=== PATIENT | male | born 1965 | race Caucasian/White ===

== ENCOUNTER 2017-12-08 17:30 | Emergency (ER) | payer BC ==
[~2017-12-08] VITALS: Ht 182.9 cm; Wt 72.6 kg
[~2017-12-08 17:30] MED LIST: CEPHALEXIN500 MG PO; NORCO 5-325 TA1 EACH PO
== END 2017-12-08 20:48 | disposition short-term general hospital (02) ==
LOC: ED 17:30
PROC: 0RSJXZZ Reposition Right Shoulder Joint, External Approach (ICD-10-PCS; principal; 2017-12-08)
DX: M24.411 Recurrent dislocation, right shoulder (principal); X50.9XXA Other and unspecified overexertion or strenuous movements or postures, initial encounter
CPT/HCPCS: 23650; 73030; 96374; 96375; 96376; 99285; J1170; J2250; J2405; J2704; J3010

== ENCOUNTER 2017-12-18 12:19 | Day surgery (SDC) | payer OTHER, BC ==
[~2017-12-18] VITALS: Ht 182.9 cm; Wt 72.6 kg
--- OUTSIDE RECORDS SUMMARY | ~2017-12-18 | XMS | Encounter Summary ---
Demographics + + + | Address | [address] | | | [place] [address] | + + + | Home Phone | | + + + | Preferred Language | Unknown | + + + | Marital Status | Single | + + + | Cheondoism Affiliation | Unknown | + + + | Race | Unknown | + + + | Ethnic Group | Unknown | + + + Author + + + | Author | [facility] | | | and [place] | + + + | Organization | [facility] | | | and [place] | + + + | Address | Unknown | + + + | Phone | Unavailable | + + + Support + + + + + | Name | Relationship | Address | Phone | + + + + + | Yuliya Bynum | ECON | [address] | | | | | [place] | | | | | [address] | | + + + + + Care Team Providers + +------+ + | Care Group Home Paraprofessional Name | Role | Phone | + +------+ + | No, Physician | PCP | Unavailable | + +------+ + Reason for Visit + + + | Reason | Comments | + + + | Shoulder Pain | | + + + Auth/Cert +--------+--------+ + + + + | Status | Reason | Specialty | Diagnoses / | Referred By | Referred To | | | | | Procedures | Contact | Contact | +--------+--------+ + + + + | | | | | | | +--------+--------+ + + + + Encounter Details +--------+---------+ + + + | Date | Type | Department | Care Team | Description | +--------+---------+ + + + | 12/08/ | Surgery | [facility] | Vivek Deshpande | MANIPULATION | | 2018 | | MED CTR OR INTRA OP | MD Angeline [address] [facility] | SHOULDER ( Closed | | | | [address] | [place] | vs Open reduction of | | | | [place] | [address] | R shoulder | | | | [address] | | | | | | [phone] | | | +--------+---------+ + + + Social History + +-------+ +--------+------+ | Tobacco Use | Types | Packs/Day | Years | Date | | | | | Used | | + +-------+ +--------+------+ | Never Smoker | | | | | + +-------+ +--------+------+ + +---+---+ + | Smokeless Tobacco: | | | Quit: | | Former User | | | 12/08/18 | | | | | 94 | + +---+---+ + + + +---------+ + | Alcohol Use | Drinks/We | oz/Week | Comments | | | ek | | | + + +---------+ + | Yes | 3 Cans | 1.8 | | | | of beer | | | + + +---------+ + + + + | Sex Assigned at | Date Recorded | | | | + + + | Not on file | | + + + as of this encounter Last Filed Vital Signs + + + + | Vital Sign | Reading | Time Taken | + + + + | Blood Pressure | 183/86 | 12/08/20172314 PDT | + + + + | Pulse | 76 | 12/08/20172314 PDT | + + + + | Temperature | 35.7 C (96.3 F) | 12/08/20172244 PDT | + + + + | Respiratory Rate | 15 | 12/08/20172314 PDT | + + + + | Oxygen Saturation | 100% | 12/08/20172314 PDT | + + + + | Inhaled Oxygen | - | - | | Concentration | | | + + + + | Weight | 70.3 kg (155 lb) | 12/08/20172257 PDT | + + + + | Height | 182.9 cm (6') | 12/08/20172257 PDT | + + + + | Body Mass Index | 21.02 | 12/08/20172257 PDT | + + + + in this encounter Functional Status + + + + | Functional Status | Response | Date of Assessment | + + + + | Are you deaf or do you have serious | No | 12/08/2017 | | difficulty hearing? | | | + + + + | Are you blind or do you have serious | No | 12/08/2017 | | difficulty seeing, even when wearing | | | | glasses? | | | + + + + | Do you have serious difficulty walking or | No | 12/08/2017 | | climbing stairs? (5 years old or older) | | | + + + + | Do you have difficulty dressing or bathing? | No | 12/08/2017 | | (5 years old or older) | | | + + + + | Because of a physical, mental, or emotional | No | 12/08/2017 | | condition, do you have difficulty doing | | | | errands alone such as visiting a doctor's | | | | office or shopping? [15 years old or | | | | older)] | | | + + + + + + + + | Cognitive Status | Response | Date of Assessment | + + + + | Because of a physical, mental, or emotional | No | 12/08/2017 | | condition, do you have serious difficulty | | | | concentrating, remembering, or making | | | | decisions? (5 years old or older) | | | + + + + as of this encounter Discharge Instructions Monroe Rivera PA-C - 12/08/2017Call our office on Sunday to schedule your post opera tive appointment in two weeks Keep sling in place at right shoulder in place for one week. No range of motion during thi s time. You can remove sling to shower bug keep arm internally rotated to stomach. After one week you can start with gentle range of motion at shoulder. No weight bearing or lifting at shoulder. Take pain medications as prescribed if necessary If you have any questions, comments or concerns please contact our office. Do not exceed 4,000 mg of acetaminophen (Tylenol) per day. Hydrocodone-acetaminophen ([place] ) and Oxycodone-acetaminophen (Percocet) have 325 mg acetaminophen per tablet. Regular [facility] acetaminophen is 325 mg per tablet. Extra strength has 500 mg per tablet. Do not consume alcohol while taking opioid mediations. If constipation arises, try docusate-senna one tablet twice daily; milk of magnesia 30 mL o nce each night; or Miralax one capful (17 grams) dissolved in half a cup of water once daily for 3 days. If constipation does not resolve within 3 days after discharge, contact the doc tor's office. in this encounter Medications at Time of Discharge + + +--------+---------+ + + | Medication | Sig. | Disp. | Refills | Start | End Date | | | | | | Date | | + + +--------+---------+ + + | | Take 1 tablet by | 30 | 0 | 12/09/19 | | | HYDROcodone-acetamin | mouth EVERY 4 TO 6 | tablet | | 18 | | | ophen (NORCO) | HOURS NEEDED. | | | | | | 7.5-325 mg per | | | | | | | tablet | | | | | | + + +--------+---------+ + + as of this encounter Progress Notes J Luis Vickers RN - 12/09/2017 0101 PDTPatient arrived to the floor from OR at 2230 and was oriented to room and call light system. Admission assessment complete. Patient was able to eat without nausea/vomit. Patient voided twice. Patient's pain was controlled with 10mg po o xycodone. Patient was instructed to wait for pharmacy to open before discharge but patient d eclined and said that he would "tough it out" until his pharmacy opens up at 0800. Discharge instructions given to patient and AVS printout handed to him. Prescription for NORCO given. Peripheral IV access discontinue with catheter tip intact. Patient significant other arrive d to drive patient home. Valuables returned to patient. Discharge VS within normal limits. P atient denied any acute distress. Patient was wheeled to the car at 0020 accompanied by girl friend. in this encounter Plan of Treatment Not on fileas of this encounter Procedures + +--------+ + + + | Procedure Name | Priori | Date/Time | Associated Diagnosis | Comments | | | ty | | | | + +--------+ + + + | MANIPULATION | | 12/08/2017 | Dislocated R | | | SHOULDER ( Closed | | 2145 PDT | shoulder | | | vs Open reduction of | | | | | | R shoulder | | | | | + +--------+ + + + in this encounter Results XR Shoulder Right 1 Vw (12/08/20172227) + + | Narrative | + + | EXAM:XR SHOULDER RIGHT 1 VW CLINICAL HISTORY: Intra Op Closed Reduction Right | | Shoulder Dislocation COMPARISON: None. FINDINGS/IMPRESSION -Single fluoroscopic | | images show of the right shoulder. There are degenerative changes in the | | shoulder. The proximal humerus appears to reside within the glenohumeral joint. | | Dictated and Signed by: Hair Chan MD Electronically signed: 12/09/2017 8:42 | | AM | + + + + | Procedure Note | + + | Soren Urias Results In - 12/09/2017 0845 PDT EXAM:XR SHOULDER RIGHT 1 VW | | | | CLINICAL HISTORY: Intra Op Closed Reduction Right Shoulder Dislocation | | | | COMPARISON: None. | | | | FINDINGS/IMPRESSION -Single fluoroscopic images show of the right shoulder. | | There are degenerative changes in the shoulder. The proximal humerus appears to | | reside within the glenohumeral joint. | | | | | | Dictated and Signed by: Hair Chan MD | | Electronically signed: 12/09/2017 8:42 AM | + + FL C-Arm Stats No Charge (12/08/2017 2203) + + + | Specimen | Performing Laboratory | + + + | | [facility] | + + + + + | Narrative | + + | No Radiologist interpretation, please see Chart Review. | + + IMAGING REPORT - EXTERNAL SCAN (12/08/2017) + + | Narrative | + + | Ordered by an unspecified provider. | + + in this encounter Visit Diagnoses Not on filein this encounter Administered Medications + +--------+---------+------+------+------+ | Medication Order | MAR | Action | Dose | Rate | Site | | | Action | Date | | | | + +--------+---------+------+------+------+ + +---+ | diphenhydrAMINE (BENADRYL) 12.5 | | | mg/5 mL liquid 25 mg 25 mg, | | | Oral, EVERY 4 HOURS PRN, Itching, | | | Starting 12/08/17 at 2245, | | | Give nalbuphine 1st, if | | | ineffective or not ordered, | | | administer diphenhydrAMINE. | | | Oral route is preferred. | | + +---+ | | | + +---+ | diphenhydrAMINE (BENADRYL) | | | injection 12.5 mg 12.5 mg, | | | Intravenous, EVERY 4 HOURS PRN, | | | Itching, Starting 12/08/17 at | | | 2245, Give nalbuphine 1st, if | | | ineffective or not ordered, | | | administer diphenhydrAMINE. | | | Oral route is preferred. | | + +---+ | | | + +---+ | diphenhydrAMINE (BENADRYL) | | | tablet 25 mg 25 mg, Oral, EVERY | | | 4 HOURS PRN, Itching, Starting | | | 12/08/17 at 2245, Give | | | nalbuphine 1st, if ineffective or | | | not ordered, administer | | | diphenhydrAMINE. Oral route is | | | preferred. | | + +---+ | | | + +---+ | lactated ringers (LR) infusion | | | at 10-100 mL/hr, Intravenous, | | | CONTINUOUS, Starting 12/08/17 | | | at 2230, TKO. | | + +---+ | | | + +---+ | ondansetron (ZOFRAN ODT) | | | disintegrating tablet 4 mg 4 mg, | | | Oral, EVERY 6 HOURS PRN, Nausea, | | | Vomiting, Starting 12/08/17 | | | at 2245, First line agent | | + +---+ | | | + +---+ | ondansetron (ZOFRAN) injection | | | 4 mg 4 mg, Intravenous, EVERY 6 | | | HOURS PRN, Nausea, Vomiting, | | | Starting 12/08/17 at 2245, | | | First line agent. Use PO option | | | unless NPO status or unable to | | | tolerate. | | + +---+ | | | + +---+ + +-------+ +-------+---+---+ | oxyCODONE (ROXICODONE) tablet | Given | | 10 mg | | | | 5-20 mg 5-20 mg, Oral, EVERY 3 | | 8 23:25 | | | | | HOURS PRN, Pain, Starting Sat | | PDT | | | | | 12/08/17 at 2245, First dose must | | | | | | | be the lowest dose, can titrate | | | | | | | to effective dose by repeat of | | | | | | | lowest dose every 60 minutes prn | | | | | | | pain, may not exceed maximum dose | | | | | | | ordered per interval. Use Pasero | | | | | | | Sedation Scale. | | | | | | + +-------+ +-------+---+---+ +---+---+ | | | +---+---+ in this encounter
--- OUTSIDE RECORDS SUMMARY | ~2017-12-18 | XMS | Encounter Summary ---
Demographics + + + | Address | [address] | | | [place] [address] | + + + | Home Phone | | + + + | Preferred Language | Unknown | + + + | Marital Status | Single | + + + | Hoahaoism Affiliation | Unknown | + + + | Race | Unknown | + + + | Ethnic Group | Unknown | + + + Author + + + | Author | [facility] | | | and [place] | + + + | Organization | [facility] | | | and [place] | + + + | Address | Unknown | + + + | Phone | Unavailable | + + + Support + + + + + | Name | Relationship | Address | Phone | + + + + + | Yuliya Bynum | ECON | [address] | | | | | [place] | | | | | [address] | | + + + + + Care Team Providers + +------+ + | Care Dry Pan Feeder Name | Role | Phone | + +------+ + | No, Physician | PCP | Unavailable | + +------+ + Encounter Details +--------+ + + + + | Date | Type | Department | Care Team | Description | +--------+ + + + + | 12/08/ | Procedure | [facility] | | | | 2017 | Pass | MED CTR OR INTRA OP | | | | | | [address] | | | | | | [place] | | | | | | [address] | | | | | | [phone] | | | +--------+ + + + + Social History + +-------+ [...] + + + as of this encounter Plan of Treatment Not on fileas of this encounter Visit Diagnoses Not on filein this encounter"
--- OUTSIDE RECORDS SUMMARY | ~2017-12-18 | XMS | Encounter Summary ---
Demographics + + + | Address | [address] | | | [place] [address] | + + + | Home Phone | | + + + | Preferred Language | Unknown | + + + | Marital Status | Single | + + + | Mu-Ism Affiliation | Unknown | + + + | Race | Unknown | + + + | Ethnic Group | Unknown | + + + Author + + + | Author | [facility] | | | and [place] | + + + | Organization | [facility] | | | and [place] | + + + | Address | Unknown | + + + | Phone | Unavailable | + + + Support + + + + + | Name | Relationship | Address | Phone | + + + + + | Yuliya Bynum | ECON | [address] | | | | | [place] | | | | | [address] | | + + + + + Care Team Providers + +------+ + | Care Boil Off Machine Operator Cloth Name | Role | Phone | + [...] | 12/08/ | Surgery | [facility] | Vivek Deshpande | MANIPULATION | | 2018 | | MED CTR OR INTRA OP | MD Angeline [address] [facility] | SHOULDER ( Closed | | | | [address] | [place] | vs Open reduction of | | | | [place] | [address] | R shoulder | | | | [address] | | | | | | [phone] | | | +--------+---------+ + + + [...] mg of acetaminophen (Tylenol) per day. Hydrocodone-acetaminophen ([place] ) and Oxycodone-acetaminophen (Percocet) have 325 mg acetaminophen per tablet. Regular [facility] acetaminophen is 325 mg per tablet. [...]
--- OUTSIDE RECORDS SUMMARY | ~2017-12-18 | XMS | Encounter Summary ---
Demographics + + + | Address | [address] | | | [place] [address] | + + + | Home Phone | | + + + | Preferred Language | Unknown | + + + | Marital Status | Single | + + + | Baptist Affiliation | Unknown | + + + | Race | Unknown | + + + | Ethnic Group | Unknown | + + + Author + + + | Author | [facility] | | | and [place] | + + + | Organization | [facility] | | | and [place] | + + + | Address | Unknown | + + + | Phone | Unavailable | + + + Support + + + + + | Name | Relationship | Address | Phone | + + + + + | Yuliya Bynum | ECON | [address] | | | | | [place] | | | | | [address] | | + + + + + Care Team Providers + +------+ + | Care Telesales Agent Name | Role | Phone | + [...] | | | | | [address] | | | | | | [place] | | | | | | [address] | | | | | | [phone] | | | +--------+ + + + [...]
--- OUTSIDE RECORDS SUMMARY | ~2017-12-18 | XMS | Encounter Summary ---
Demographics + + + | Address | [address] | | | [place] [address] | + + + | Home Phone | | + + + | Preferred Language | Unknown | + + + | Marital Status | Single | + + + | Mandaeism Affiliation | Unknown | + + + | Race | Unknown | + + + | Ethnic Group | Unknown | + + + Author + + + | Author | [facility] | | | and [place] | + + + | Organization | [facility] | | | and [place] | + + + | Address | Unknown | + + + | Phone | Unavailable | + + + Support + + + + + | Name | Relationship | Address | Phone | + + + + + | Yuliya Bynum | ECON | [address] | | | | | [place] | | | | | [address] | | + + + + + Care Team Providers + +------+ + | Care Rug Dyer Helper Name | Role | Phone | + +------+ + | No, Physician | PCP | Unavailable | + +------+ + Reason for Visit Auth/Cert +--------+--------+ + + + + | Status | Reason | Specialty | Diagnoses / | Referred By | Referred To | | | | | Procedures | Contact | Contact | +--------+--------+ + + + + | | | | | | | +--------+--------+ + + + + Encounter Details +--------+ + + + + | Date | Type | Department | Care Team | Description | +--------+ + + + + | 12/08/ | Anesthesia | [facility] | Zo Ramon | | | 2018 | Event | MED CTR OR INTRA OP | DO [address] | | | | | [address] | [address] [facility] | | | | | [place], [place] | [facility] [place] [address] | | | | | [address] | [phone] | | | | | [phone] | | | +--------+ + + + + Anesthesia Record + + + + + | Procedure Name | Responsible | Anesthesia Start | Anesthesia Stop Time | | | Anesthesiologist | Time | | + + + + + | MANIPULATION | Zo Deviriel | 12/08/172157 | 12/08/179 | | SHOULDER ( Closed | DO Tristen | | | | vs Open reduction of | | | | | R shoulder (Right | | | | | Shoulder) | | | | + + + + + +----+---+ + + | Da | T | Event | Comment | | te | i | | | | | m | | | | | e | | | +----+---+ + + | 03 | 2 | An Checkout | Pre-use anesthesia machine/equipment checkout. | | /3 | 1 | | | | 1/ | 5 | | | | 20 | 8 | | | | 18 | | | | +----+---+ + + | | 2 | An Start | Reassessment prior to anesthesia induction/procedure. | | | 1 | | | | | 5 | | | | | 8 | | | +----+---+ + + | | 2 | First | | | | 1 | Inc/Proc St | | | | 5 | | | | | 8 | | | +----+---+ + + | | 2 | Preoxygenat | | | | 1 | ed | | | | 5 | | | | | 9 | | | +----+---+ + + | | 2 | Pre-Procedu | | | | 1 | ral Timeout | | | | 5 | Completed | | | | 9 | | | +----+---+ + + | | 2 | An | | | | 2 | Induction | | | | 0 | | | | | 0 | | | +----+---+ + + | | 2 | Quick Note | Induced than mask ventilated until return of spontaneous | | | 2 | | ventilation at which time I woke him up. | | | 0 | | | | | 7 | | | +----+---+ + + | | 2 | Breathing | | | | 2 | Spontaneous | | | | 1 | ly | | | | 0 | | | +----+---+ + + | | 2 | an stop | | | | 2 | data | | | | 1 | | | | | 2 | | | +----+---+ + + | | 2 | An Stop | Patient handed off to recovery nurse. | | | 1 | | | | | 9 | | | +----+---+ + + +------+ | Meds | +------+ + +--------+ | Name | Total | + +--------+ | propofol (DIPRIVAN) injection | 200 mg | | (bolus) (20 mL) | | + +--------+ | lidocaine 2% | 100 mg | + +--------+ | succinylcholine | 100 mg | + +--------+ | ondansetron | 4 mg | + +--------+ | dexamethasone | 10 mg | + +--------+ | LR (Infusion) | 300 mL | + +--------+ + + | Name | + + | N2O Flow Rate (L/Min) | + + | O2 Flow Rate (L/Min) | + + | Insp O2 | + + | Exp SEV | + + | Air Flow Rate (L/Min) | + + + + | No blood administrations on file. | + + +--------+ + + + | Type | Details | Placement | Removal | +--------+ + + + | Periph | 12/08/17; 1899; yes; Left; | 12/08/171899 by | 12/09/178 by | | eral | Antecubital; 20 gauge; 12/09/17; | J Luis Vickers RN | J Luis Vickers RN | | IV | 0009 | | | +--------+ + + + in this encounter Social History + +-------+ +--------+------+ | Tobacco [...] on filein this encounter Administered Medications + +--------+ +-------+------+------+ | Medication Order | MAR | Action | Dose | Rate | Site | | | Action | Date | | | | + +--------+ +-------+------+------+ | dexamethasone (PF) 10 mg/mL | Given | | 10 mg | | | | injection Intravenous, PRN, | | 8 22:00 | | | | | Starting 12/08/17 at 2200, | | PDT | | | | | Anesthesia Intra-op | | | | | | + +--------+ +-------+------+------+ +---+---+ | | | +---+---+ + +---------+ +---+---+---+ | lactated ringers (LR) infusion | New Bag | | | | | | Intravenous, CONTINUOUS PRN, | | 8 21:56 | | | | | Starting 12/08/17 at 2156, | | PDT | | | | | Anesthesia Intra-op | | | | | | + +---------+ +---+---+---+ +---+---+ | | | +---+---+ + +-------+ +--------+---+---+ | lidocaine (PF) 2% injection | Given | | 100 mg | | | | Intravenous, PRN, Starting Sat | | 8 22:00 | | | | | 12/08/17 at 2200, Anesthesia | | PDT | | | | | Intra-op | | | | | | + +-------+ +--------+---+---+ +---+---+ | | | +---+---+ + +-------+ +------+---+---+ | ondansetron (ZOFRAN) injection | Given | | 4 mg | | | | Intravenous, PRN, Nausea, | | 8 22:00 | | | | | Vomiting, Starting 12/08/17 at | | PDT | | | | | 2200, Anesthesia Intra-op | | | | | | + +-------+ +------+---+---+ +---+---+ | | | +---+---+ + +-------+ +--------+---+---+ | propofol (DIPRIVAN) injection | Given | | 200 mg | | | | Intravenous, PRN, Starting Sat | | 8 22:00 | | | | | 12/08/17 at 2200, Anesthesia | | PDT | | | | | Intra-op | | | | | | + +-------+ +--------+---+---+ +---+---+ | | | +---+---+ + +-------+ +--------+---+---+ | succinylcholine (ANECTINE) | Given | | 100 mg | | | | injection Intravenous, PRN, | | 8 22:00 | | | | | Starting 12/08/17 at 2200, | | PDT | | | | | Anesthesia Intra-op | | | | | | + +-------+ +--------+---+---+ +---+---+ | | | +---+---+ in this encounter"
--- OUTSIDE RECORDS SUMMARY | ~2017-12-18 | XMS | Encounter Summary ---
Demographics + + + | Address | [address] | | | [place] [address] | + + + | Home Phone | | + + + | Preferred Language | Unknown | + + + | Marital Status | Single | + + + | Taoist Affiliation | Unknown | + + + | Race | Unknown | + + + | Ethnic Group | Unknown | + + + Author + + + | Author | [facility] | | | and [place] | + + + | Organization | [facility] | | | and [place] | + + + | Address | Unknown | + + + | Phone | Unavailable | + + + Support + + + + + | Name | Relationship | Address | Phone | + + + + + | Yuliya Bynum | ECON | [address] | | | | | [place] | | | | | [address] | | + + + + + Care Team Providers + +------+ + | Care Duct Layer Supervisor Name | Role | Phone | + [...] + + + + | 12/08/ | Emergency | [facility] | Vivek Deshpande | Dislocation of right | | 2018 - | | MED CTR SURGICAL | MD [address] [facility] | shoulder joint, | | | | [address] | [place] | initial encounter | | 12/09/ | | [place] [address] | [address] | | | 2017 | | [phone] | | | +--------+ + + + [...] mg of acetaminophen (Tylenol) per day. Hydrocodone-acetaminophen ([place] ) and Oxycodone-acetaminophen (Percocet) have 325 mg acetaminophen per tablet. Regular [facility] acetaminophen is 325 mg per tablet. Extra [...] 3 days after discharge, contact the doc chris's office. in this encounter Medications at Time [...] + + in this encounter Visit Diagnoses + + | Diagnosis | + + | Dislocation of right shoulder joint, initial encounter | + + Administered Medications + +--------+---------+------+------+------+ | Medication Order [...]
--- OUTSIDE RECORDS SUMMARY | ~2017-12-18 | XMS | Encounter Summary ---
Demographics + + + | Address | [address] | | | [place] [address] | + + + | Home Phone | | + + + | Preferred Language | Unknown | + + + | Marital Status | Single | + + + | Christianity Affiliation | Unknown | + + + | Race | Unknown | + + + | Ethnic Group | Unknown | + + + Author + + + | Author | [facility] | | | and [place] | + + + | Organization | [facility] | | | and [place] | + + + | Address | Unknown | + + + | Phone | Unavailable | + + + Support + + + + + | Name | Relationship | Address | Phone | + + + + + | Yuliya Bynum | ECON | [address] | | | | | [place] | | | | | [address] | | + + + + + Care Team Providers + +------+ + | Care Social Work Program Coordinator Name | Role | Phone | + [...] | 12/08/ | Surgery | [facility] | Vivek Deshpande | MANIPULATION | | 2018 | | MED CTR OR INTRA OP | MD [address] [facility] | SHOULDER ( Closed | | | | [address] | [place] | vs Open reduction of | | | | [place] | [address] | R shoulder | | | | [address] | | | | | | [phone] | | | +--------+---------+ + + + [...] mg of acetaminophen (Tylenol) per day. Hydrocodone-acetaminophen ([place] ) and Oxycodone-acetaminophen (Percocet) have 325 mg acetaminophen per tablet. [facility] acetaminophen is 325 mg per tablet. Extra [...]
--- OUTSIDE RECORDS SUMMARY | ~2017-12-18 | XMS | Encounter Summary ---
Demographics + + + | Address | [address] | | | [place] [address] | + + + | Home Phone | | + + + | Preferred Language | Unknown | + + + | Marital Status | Single | + + + | Amish Affiliation | Unknown | + + + | Race | Unknown | + + + | Ethnic Group | Unknown | + + + Author + + + | Author | [facility] | | | and [place] | + + + | Organization | [facility] | | | and [place] | + + + | Address | Unknown | + + + | Phone | Unavailable | + + + Support + + + + + | Name | Relationship | Address | Phone | + + + + + | Yuliya Bynum | ECON | [address] | | | | | [place] | | | | | [address] | | + + + + + Care Team Providers + +------+ + | Care Cia Agent Name | Role | Phone | [...] + + | 12/08/ | Anesthesia | [facility] | [facility] | | | 2018 | Event | MED CTR OR INTRA OP | DO Werner [address] | | | | | [address] | [facility] | | | | | [place], [place] | [place] [address] | | | | | [address] | [phone] | | | | | [phone] | | | +--------+ + + + [...]
--- OUTSIDE RECORDS SUMMARY | ~2017-12-18 | XMS | Encounter Summary ---
Demographics + + + | Address | [address] | | | [place] [address] | + + + | Home Phone | | + + + | Preferred Language | Unknown | + + + | Marital Status | Single | + + + | Confucianism Affiliation | Unknown | + + + | Race | Unknown | + + + | Ethnic Group | Unknown | + + + Author + + + | Author | [facility] | | | and [place] | + + + | Organization | [facility] | | | and [place] | + + + | Address | Unknown | + + + | Phone | Unavailable | + + + Support + + + + + | Name | Relationship | Address | Phone | + + + + + | Yuliya Bynum | ECON | [address] | | | | | [place] | | | | | [address] | | + + + + + Care Team Providers + +------+ + | Care Softwood Faller Name | Role | Phone | + [...] + + | 12/08/ | Anesthesia | [facility] | [facility] | | | 2018 | Event | MED CTR OR INTRA OP | DO Werner [address] | | | | | [address] | [facility] | | | | | [place], [place] | [place] [place] [address] | | | | | [address] | [phone] | | | | | [phone] | | | +--------+ + + + [...]
--- OUTSIDE RECORDS SUMMARY | ~2017-12-18 | XMS | Clinical Summary ---
Demographics + + + | Address | [address] | | | [place] [address] | + + + | Home Phone | | + + + | Preferred Language | Unknown | + + + | Marital Status | Single | + + + | Worship Affiliation | Unknown | + + + | Race | Unknown | + + + | Ethnic Group | Unknown | + + + Author + + + | Author | [facility] | | | and [place] | + + + | Organization | [facility] | | | and [place] | + + + | Address | Unknown | + + + | Phone | Unavailable | + + + Support + + + + + | Name | Relationship | Address | Phone | + + + + + | Yuliya Woodruff | ECON | [address] | | | | | [place] | | | | | [address] | | + + + + + Care Team Providers + +------+ + | Care Sushi Chef Name | Role | Phone | + +------+ + | No, Physician | PP | Unavailable | + +------+ + Allergies No Known Allergies Current Medications + + +--------+---------+------+------+-------+ | Prescription | Sig. | Disp. | Refills | Star | End | Statu | | | | | | t | Date | s | | | | | | Date | | | + + +--------+---------+------+------+-------+ | | Take 1 tablet by | 30 | 0 | 03/3 | | Activ | | HYDROcodone-acetamin | mouth EVERY 4 TO 6 | tablet | | 1/20 | | e | | ophen (NORCO) | HOURS NEEDED. | | | 18 | | | | 7.5-325 mg per | | | | | | | | tablet | | | | | | | + + +--------+---------+------+------+-------+ Active Problems Not on file Encounters +--------+ + + + + | Date | Type | Specialty | Care Team | Description | +--------+ + + + + | 12/08/ | Emergency | | Vivek Deshpande | Dislocation of right | | 2017 - | | | MD Angeline | shoulder joint, | | | | | | initial encounter | | 12/09/ | | | | | | 2017 | | | | | +--------+ + + + + | 12/08/ | Anesthesia | | [facility] | | | 2017 | Event | | DO Werner | | +--------+ + + + + | 12/08/ | Procedure | | | | | 2017 | Pass | | | | +--------+ + + + + | 12/08/ | Surgery | | Vivek Deshpande | MANIPULATION | | 2017 | | | L, | SHOULDER ( Closed | | | | | | vs Open reduction of | | | | | | R shoulder | +--------+ + + + + from Last 3 Months Social History + +-------+ +--------+------+ | Tobacco [...] on file | | + + + Last Filed Vital Signs + + + [...] 12/08/20172257 PDT | + + + + Plan of Treatment + + + + + | Health Maintenance | Due Date | Last Done | Comments | + + + + + | Hepatitis C | | | | | Screening | 4 | | | + + + + + | Vaccine: | | | | | Dtap/Tdap/Td (1 - | 3 | | | | Tdap) | | | | + + + + + | COLON CANCER | | | | | SCREENING | 4 | | | | (COLONOSCOPY EVERY | | | | | 10 YEARS 50-75) | | | | + + + + + | Vaccine: Influenza | | | | | (Season Ended) | 8 | | | + + + + + Procedures + +--------+ + + + | [...] | | + +--------+ + + + from Last 3 Months Results XR Shoulder Right 1 Vw (12/08/20172227) [...] by an unspecified provider. | + + from Last 3 Months Insurance +-------+--------+ +------+-------+---------+ | Payer | Benefi | Subscriber | Type | Phone | Address | | | t Plan | ID | | | | | | / | | | | | | | Group | | | | | +-------+--------+ +------+-------+---------+ | BCBS | BCBS | xxxxxxxxxxx | PPO | | | | | OUT OF | x | | | | | | STATE | | | | | | | PPO | | | | | +-------+--------+ +------+-------+---------+ + +--------+ +--------+ + + | Guarantor Name | Accoun | Relation to | Date | Phone | Billing Address | | | t Type | Patient | of | | | | | | | | | | + +--------+ +--------+ + + | BRITTA WOODRUFF | Person | Self | [birth year] | Home: | [address] | | | al/Sam | | 1965 | [phone] [place] | | | [place] | | | [phone] | [phone] | + +--------+ +--------+ + +"
--- OUTSIDE RECORDS SUMMARY | ~2017-12-18 | XMS | Encounter Summary ---
Demographics + + + | Address | [address] | | | [place] [address] | + + + | Home Phone | | + + + | Preferred Language | Unknown | + + + | Marital Status | Single | + + + | Buddhist Affiliation | Unknown | + + + | Race | Unknown | + + + | Ethnic Group | Unknown | + + + Author + + + | Author | [facility] | | | and [place] | + + + | Organization | [facility] | | | and [place] | + + + | Address | Unknown | + + + | Phone | Unavailable | + + + Support + + + + + | Name | Relationship | Address | Phone | + + + + + | Yuliya Bynum | ECON | [address] | | | | | [place] | | | | | [address] | | + + + + + Care Team Providers + +------+ + | Care Chronometer Tester Name | Role | Phone | + [...] MED CTR SURGICAL | MD Angeline [address] [facility] | shoulder joint, | | | | [address] | [place] | initial encounter | | 12/09/ | | [place] [id number] | [address] | | | 2017 | | [phone] | | | +--------+ + + + [...] mg of acetaminophen (Tylenol) per day. Hydrocodone-acetaminophen ([place] ) and Oxycodone-acetaminophen (Percocet) have 325 mg acetaminophen per tablet. Regular [facility] acetaminophen is 325 mg per tablet. [...]
--- OUTSIDE RECORDS SUMMARY | ~2017-12-18 | XMS | Clinical Summary ---
Demographics + + + | Address | [address] | | | [place] [address] | + + + | Home Phone | | + + + | Preferred Language | Unknown | + + + | Marital Status | Single | + + + | Druze Affiliation | Unknown | + + + | Race | Unknown | + + + | Ethnic Group | Unknown | + + + Author + + + | Author | [facility] | | | and [place] | + + + | Organization | [facility] | | | and [place] | + + + | Address | Unknown | + + + | Phone | Unavailable | + + + Support + + + + + | Name | Relationship | Address | Phone | + + + + + | Yuliya Woodruff | ECON | [address] | | | | | [place] | | | | | [address] | | + + + + + Care Team Providers + +------+ + | Care Attorney Lawyer Name | Role | Phone | + [...] | [place] | | | [phone] | [phone] | + +--------+ +--------+ + +"
--- OUTSIDE RECORDS SUMMARY | ~2017-12-18 | XMS | Encounter Summary ---
Demographics + + + | Address | [address] | | | [place] [address] | + + + | Home Phone | | + + + | Preferred Language | Unknown | + + + | Marital Status | Single | + + + | Sabianism Affiliation | Unknown | + + + | Race | Unknown | + + + | Ethnic Group | Unknown | + + + Author + + + | Author | [facility] | | | and [place] | + + + | Organization | [facility] | | | and [place] | + + + | Address | Unknown | + + + | Phone | Unavailable | + + + Support + + + + + | Name | Relationship | Address | Phone | + + + + + | Yuliya Bynum | ECON | [address] | | | | | [place] | | | | | [address] | | + + + + + Care Team Providers + +------+ + | Care Supervisor Roller Shop Name | Role | Phone | + [...] SURGICAL | MD Angeline [address] [facility] | shoulder joint, | | | | [address] | [place] | initial encounter | | 12/09/ | | [place] [id number] | [address] | | | 2017 | | [phone] | | | +--------+ + + + [...] mg of acetaminophen (Tylenol) per day. Hydrocodone-acetaminophen ([place] ) and Oxycodone-acetaminophen (Percocet) have 325 mg acetaminophen per tablet. Regular [facility] acetaminophen is 325 mg per tablet. [...]
--- OUTSIDE RECORDS SUMMARY | ~2017-12-18 | XMS | Encounter Summary ---
Demographics + + + | Address | [address] | | | [place] [address] | + + + | Home Phone | | + + + | Preferred Language | Unknown | + + + | Marital Status | Single | + + + | Sabianist Affiliation | Unknown | + + + | Race | Unknown | + + + | Ethnic Group | Unknown | + + + Author + + + | Author | [facility] | | | and [place] | + + + | Organization | [facility] | | | and [place] | + + + | Address | Unknown | + + + | Phone | Unavailable | + + + Support + + + + + | Name | Relationship | Address | Phone | + + + + + | Yuliya Bynum | ECON | [address] | | | | | [place] | | | | | [address] | | + + + + + Care Team Providers + +------+ + | Care Data Reporting Analyst Name | Role | Phone | + [...] | | | | | [address] | | | | | | [place] | | | | | | [address] | | | | | | [phone] | | | +--------+ + + + [...]
--- OUTSIDE RECORDS SUMMARY | ~2017-12-18 | XMS | Clinical Summary ---
Demographics + + + | Address | [address] | | | [place] [address] | + + + | Home Phone | | + + + | Preferred Language | Unknown | + + + | Marital Status | Single | + + + | Latter-Day Affiliation | Unknown | + + + | Race | Unknown | + + + | Ethnic Group | Unknown | + + + Author + + + | Author | [facility] | | | and [place] | + + + | Organization | [facility] | | | and [place] | + + + | Address | Unknown | + + + | Phone | Unavailable | + + + Support + + + + + | Name | Relationship | Address | Phone | + + + + + | Yuliya Woodruff | ECON | [address] | | | | | [place] | | | | | [address] | | + + + + + Care Team Providers + +------+ + | Care Event Management Consultant Name | Role | Phone | + [...] | [place] | | | [address] | [phone] | + +--------+ +--------+ + +"
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
== END 2017-12-18 18:15 | disposition home or self-care (01) ==
LOC: ED 12:19 → DSVR 12:21 → DS 12:21 → DSVR 12:21 → ED 12:21 → DS 18:15 → DSVR 18:15
PROVIDERS: Orthopaedic Surgery
PROC: 0RSJXZZ Reposition Right Shoulder Joint, External Approach (ICD-10-PCS; principal; 2017-12-18 16:30)
DX: M24.411 Recurrent dislocation, right shoulder (principal); X50.0XXA Overexertion from strenuous movement or load, initial encounter; Y92.63 Factory as the place of occurrence of the external cause; Y99.0 Civilian activity done for income or pay
CPT/HCPCS: 01620; 73020; 73030; 96374; 96375; 99285; J1170; J1885; J2060; J2270; J2704; J3010; J7030

== ENCOUNTER 2024-05-16 15:02 | Emergency (ER) | payer OTHER, BC ==
[~2024-05-16] VITALS: Ht 182.9 cm; Wt 76.0 kg
[2024-05-16] MEDS ORDERED: IBUPROFEN 600 MG TAB PO ONE (17:15)
[2024-05-16] MEDS ORDERED: OXYCODONE/APAP 5/325 TAB PO ONE (18:15)
[2024-05-16] MEDS ORDERED: PERCOCET 5-3251 EACH PO (18:42)
[2024-05-16 19:05] VITALS: BP 163/84
== END 2024-05-16 19:05 | disposition home or self-care (01) ==
LOC: ED 15:02
DX: S82.041A Displaced comminuted fracture of right patella, initial encounter for closed fracture (principal); W01.198A Fall on same level from slipping, tripping and stumbling with subsequent striking against other object, initial encounter
CPT/HCPCS: 73560; 99283; A9270